=== PATIENT | female | born 1995 | race Caucasian/White ===

== ENCOUNTER 2020-03-11 13:41 | Outpatient (REF) | payer MEDICAID, SELFPAY ==
--- NOTE | 2020-03-11 13:48 | US_ITS ---
EXAMINATION: US DIAGNOSTIC ULTRASOUND BREAST, LEFT CLINICAL INFORMATION: 24-year-old with recent left medial breast pain. Nodule palpable on clinical exam, not perceived by patient. No discharge. No family history breast cancer. No prior breast imaging. COMPARISON: None. TECHNIQUE: Ultrasound left breast is targeted to the area of clinical concern. Patient is able to point to the vicinity of clinical interest. Patient does not feel a palpable mass to directly target. Grayscale imaging and color Doppler are performed without and with harmonics. FINDINGS: There is no focal suspicious finding. There is no cystic or solid mass, architectural abnormality, duct ectasia, or edema in the soft tissue planes. Results are discussed with the patient at time of visit. Patient should be managed based on the clinical impression. If clinically indicated, further evaluation may be considered with surgical consult. Decision to proceed with biopsy should be based on clinical grounds and degree of clinical concern. US/US breast LT limited IMPRESSION: Unremarkable targeted left breast ultrasound. ASSESSMENT: BI-RADS 1: Negative RECOMMENDATION: 1. Patient should be managed based on the clinical impression. If clinically indicated, further evaluation may be considered with surgical consult. Decision to proceed with biopsy should be based on clinical grounds and degree of clinical concern. 2. Otherwise, routine annual screening mammography, beginning age 40, or earlier as clinical risk factors warrant. This patient's information was entered into a reminder system with a target due date for their next mammogram.
== END 2020-03-11 13:42 | disposition home or self-care (01) ==
LOC: HO.MAMMO 13:41
PROVIDERS: Visit Provider Registered Nurse
DX: N63.24 Unspecified lump in the left breast, lower inner quadrant (principal)
CPT/HCPCS: 76642

== ENCOUNTER 2021-01-29 08:07 | Emergency (ER) | payer MEDICAID, SELFPAY ==
[2021-01-29 09:09] VITALS: BP 161/97; PULSE 112; RESP 19; TEMP 38; O2SAT 98; BMI 31.8
[2021-01-29 09:11] VITALS: O2SAT 98
[2021-01-29 09:32] LABS: IDNOW Serial# 9DD0AD1C; Strep A Nucleic Acid Negative (Negative)
[2021-01-29 09:50] VITALS: PULSE 106; O2SAT 90
[2021-01-29 09:50] LABS: Influenza A PCR POSITIVE (Negative); Influenza B PCR NEGATIVE (Negative); Resp Syncy Virus RNA Qual PCR NEGATIVE (Negative); SARS COV2 PCR INHOUSE NEGATIVE (Negative)
[2021-01-29] MEDS: Albuterol/Iprat 2.5/0.5MG 3 ML AMPUL.NEB INHALE (09:50)
--- NOTE | 2021-01-29 10:22 | ED.URI ---
HPI - URI/Sore Throat General Chief Complaint: Upper Respiratory Symptoms Stated Complaint: flu symptons Time Seen by Provider: 01/29/21 09:11 Source: patient Mode of arrival: ambulatory Limitations: no limitations History of Present Illness HPI Narrative: 25-year-old female with a history of asthma presents for 3 days of fever, headache, body aches, nausea, cough, and sore throat. No vomiting, no diarrhea. Patient reports fever at home last night, no fever today. She is taking DayQuil and NyQuil. Patient used her inhaler last night but has not used it today. She has reduced food intake but is able to drink plenty of water. She feels that her headache is worse when she coughs. Related Data Allergies Allergy/AdvReac Type Severity Reaction Status Date / Time No Known Allergies Allergy Unverified 11/14/19 17:53 Review of Systems Constitutional: Constitutional: Reports body ache(s), Reports chills, Reports fatigue, Reports fever(s), Denies headache(s), Reports malaise and Denies weakness Eyes: Eyes: Denies blurry vision and Denies diplopia ENT: Denies vertigo, Denies dizziness, Denies otalgia, Denies headache(s), Denies mouth pain, Reports nasal congestion, Reports nasal discharge, Reports post nasal drip, Denies sinus pain, Denies sinus pressure, Reports sore throat and Denies throat swelling Cardiovascular: Cardiovascular: Denies chest pain, Denies syncope, Denies leg edema, Denies lightheadedness, Denies Loss of Consciousness, Denies palpitations and Denies dyspnea Respiratory: Respiratory: Denies chest congestion, Reports cough and Denies dyspnea Gastrointestinal: Gastrointestinal: Denies abdominal pain, Denies hematochezia, Denies constipation, Denies diarrhea, Reports nausea and Denies vomiting Integumentary/Breasts: Skin/Breast: Denies rash Neurologic: Denies confusion, Denies vertigo, Denies dizziness, Denies syncope, Denies headache(s) and Denies weakness Psychiatric: Psychiatric: Denies anxiety, Denies confusion and Denies depression Endocrine: Endocrine: Reports fatigue and Denies palpitations Allergic/Immunologic: Allergic/Immunologic: Denies throat swelling PMFSH Social History Social History Advance Directives: No Advance Directives Information Provided: Yes Physical Exam Vital Signs: Vital Signs: Last Vital Signs Temp 100.4 F 01/29/21 09:09 Pulse 106 H 01/29/21 09:50 Resp 19 01/29/21 09:09 BP 161/97 H 01/29/21 09:09 Pulse Ox 98 01/29/21 09:11 BMI result Body Mass Index 31.8 Const: General: no acute distress, alert, awake and ill appearing acutely; No confusion Nutritional Appearance: well nourished Orientation/consciousness: patient oriented x3 and No confusion Limitations: no limitations HENMT: Head: Yes normal to inspection, Yes normocephalic and Yes atraumatic Ears: hearing grossly normal bilaterally, external ears normal, TM's normal bilaterally and EAC's normal General nose exam: Normal external nose present Face and sinus: Yes normal facial exam and Yes sinuses nontender Mouth: Normal oral and palatal mucosa present Throat: Yes posterior oropharynx normal Eyes: Conjunctivae: conjunctivae normal Pupils: Equal, round and reactive pupils present EOM: EOMs intact bilaterally Neck: Neck: Yes full ROM, Yes no lymphadenopathy and Yes supple Resp: Effort & Inspection: normal respiratory effort and able to speak in complete sentences Auscultation: no crackles, no rales, no rhonchi, no wheezes and diminished lung sounds diffuse Cardio: Rate: regular rate Rhythm: regular rhythm Heart sounds: S1 normal heart sound present and S2 normal heart sound present GI: Inspection: Yes normal to inspection Palpation (GI): Soft to palpation, nontender, no guarding and not rigid Percussion: Yes normal to percussion Auscultation: normal bowel sounds Skin: General skin exam: no rashes or lesions noted Neuro: General: patient oriented x3 and No confusion Cranial nerves: Yes Equal, round and reactive pupils present Extrem: General: Yes normal to inspection and Yes full ROM Psych: Appearance: grossly normal Affect: normal affect Attitude: cooperative Thought process: Normal thought process present Course Course Course Narrative: 25-year-old female presents for 3 days of however symptoms including fever, headache, myalgias, dry cough. On exam, patient has stable vitals, is afebrile, lungs are tight and not moving much air. Patient is negative COVID negative strep, tested positive for influenza A. After nebulizer, patient is moving more air, and feels better. Discuss the efficacy of Tamiflu treatment, patient is almost outside the window for treatment, concerning the Tamiflu may make her headache worse. Counseled patient to use her nebulizer albuterol inhaler, every 4 hours while she is awake, counseled her to take Tylenol, push fluids, rest. Out of work note given. Return precautions given. MDM - URI/Sore Throat Lab Data Labs: Lab Results 01/29/21 01/29/21 Range/Units 08:56 08:56 Influenza Type A (PCR) POSITIVE A (Negative) Influenza Type B (PCR) NEGATIVE (Negative) RSV RNA Qual (PCR) NEGATIVE (Negative) SARS-CoV-2 RNA (RT-PCR) NEGATIVE (Negative) S. pyogenes GrpA KEYANA Negative (Negative) Discharge Plan Discharge Clinical Impression: Influenza A Patient Disposition: Home, Self-Care Instructions: Influenza (ED) Additional Instructions: Please stay home, rest, drink 2-3 L of water a day. Take Tylenol. Please take 2 extra-strength Tylenol, 1000 mg, every 8 hours, for the next 3 days. Do not exceed 3000 mg in 24 hours. In addition, use either your albuterol inhaler or albuterol nebulizer machine every 4 hours for the next 3 or 4 days. Please know that you will feel sick, you may have fevers, he will be fatigued, you have influenza. You should be feeling better in the next 3-5 days. Please stay out of work until next week, if you have continued to have symptoms into late next week, please return to be seen Stand Alone Forms: Work/School Release Interventions: ED Discharge Assessment Last Done: 01/29/21 10:42
== END 2021-01-29 10:42 | disposition home or self-care (01) ==
PROVIDERS: Emergency Provider Emergency Medicine
DX: J10.1 Influenza due to other identified influenza virus with other respiratory manifestations (principal); Z20.822 Contact with and (suspected) exposure to COVID-19
CPT/HCPCS: 0241U; 36415; 87651; 94640; 99284; 99285